=== PATIENT | female | born 1965 | race Caucasian/White ===

== ENCOUNTER → 2023-04-06 14:43 | Outpatient (REF) | payer OTHER, SELFPAY | LOC: HWRAD 14:43 | PROVIDERS: ATTENDING PHYSICIAN Obstetrics & Gynecology; FAMILY PHYSICIAN Family Medicine | DX: N95.0 Postmenopausal bleeding (principal) | CPT/HCPCS: 76830; 76856 ==

== ENCOUNTER 2023-04-27 17:12 | Emergency (ER) | payer OTHER, SELFPAY ==
[2023-04-27 17:16] VITALS: BP 200/110
[2023-04-27 17:59] LABS: % Basophils 0.7 % (0-2); % Eosinophils 0.7 % (0-6); % Immature Granulocytes 0.5 % (0-0.5); % Lymphocytes 18.4 % (20.5-51.1); % Monocytes 8.6 % (1.7-9.3); % Neutrophils 71.1 % (42.2-75.2); Absolute Basophils 0.1 10^3/uL (0-0.2); Absolute Eosinophils 0.1 10^3/uL (0-0.7); Absolute Immature Granulocytes 0.1 10^3/uL (0-0.05); Absolute Lymphocytes 1.8 10^3/uL (1.2-3.4); Absolute Monocytes 0.9 10^3/uL (0.1-0.6); Hematocrit 47.8 % (37.0-47.0); Hemoglobin 16.4 g/dL (12.0-16.0); Mean Corp Hgb Conc. 34.3 g/dL (33.0-37.0); Mean Corpuscular Hgb 30.5 pg (27.0-31.0); Mean Platelet Volume 10.6 fL (7.4-10.4); Nucleated Red Blood Cells % 0 %; Platelet Count 307 10^3/uL (130-400); Red Blood Cell Count 5.37 10^6/uL (4.20-5.40); Red Cell Dist. Width 12.1 % (11.5-14.5); White Blood Cell Count 9.9 10^3/uL (4.8-10.8)
[2023-04-27 18:05] LABS: HCG, Serum Qualitative Screen Negative
[2023-04-27 18:07] LABS: ALT (SGPT) 87 U/L (0-35); AST (SGOT) 68 U/L (14-36); Albumin 4.7 g/dl (3.5-5.0); Alkaline Phosphatase 84 U/L (38-126); Blood Urea Nitrogen 15 mg/dl (7-17); Carbon Dioxide 25 mmol/L (22-30); Chloride 102 mmol/L (98-107); Glucose 109 mg/dl (70-99); Potassium 4.1 mmol/L (3.5-5.1); Sodium 134 mmol/L (135-145); Total Bilirubin 0.8 mg/dl (0.2-1.3); Total Protein 7.3 g/dl (6.3-8.2); eGFR > 60.00
[2023-04-27 18:12] VITALS: BP 150/77
--- NOTE | 2023-04-27 18:14 | ED.GENMED ---
History of Present Illness
General
Chief Complaint: Headache
Source: patient
Exam Limitations: none
Time Seen by Provider: 04/27/23 17:56
Travel History
Have you had any contact with someone who has COVID-19?: No
Do you have any symptoms of coronavirus? Fever > 100 degrees, chills, cough, shortness of breath, sore throat, loss of taste or smell, muscle aches, or headache?: No
History of Present Illness
History of Present Illness:
This is a 57 year old female that comes in with c/o Migraine. States that she has had migraines in the past but today this feels worse. States that it started last night and she was up all night due to the pain. States that she took Imitrex and it
did not help. States that there is pounding and pressure. States that it is across the forehead and the base of the skull and this is the normal location for her Migraines. States that it has been constant and that the lights and sounds bothers her.
States that she was also seeing a line when she was on her computer. States that she is nauseated. Denies any fever, chills, chest pain, SOB, abd pain, vomiting, diarrhea, dizziness, urinary burning.
Past History
Past History
ED Past Medical History: Asthma, HTN, Psychiatric (Depression) and Other (Migraines, Anemia, Abnormal post medapausal bleeding)
ED Past Surgical History: and Other (Gastric bypass)
Social History
Tobacco: Non-smoker
Alcohol: Occasional
Personal:
Living: with family
Family History
Family History: Early CAD
Review of Systems
Review of Systems
All Other Systems: ROS reviewed and negative except as documented in HPI and ROS
Constitutional: Reports no symptoms; Denies fever or chills
EENT: Reports no symptoms
Respiratory: Reports no symptoms; Denies cough or trouble breathing
Cardiac: Reports no symptoms; Denies chest pain
ABD/GI: Reports nausea; Denies abdominal pain, vomiting or diarrhea
: Reports no symptoms; Denies dysuria, frequency or urgency
Musculoskeletal: Reports no symptoms
Skin: Reports no symptoms
Neurological: Reports headache; Denies dizzy
Psychiatric: Reports no symptoms
Phy Exam
General Physical Exam
General Presentation: mild distress
General age: appears stated age
General Skin: warm and dry
General Habitus: normal
General Mental: alert
General Hydration: dry mucous membranes
ENT Exam
ENT Exam: TM's normal, pharynx normal and neck supple
Eye Exam
Eye Exam: EOMI
Cardiovascular Exam
Cardiovascular Exam: regular rate/rhythm, no edema, no murmur and normal peripheral pulses
Pulmonary Exam
Pulmonary Exam: lungs clear, no respiratory distress, no rales, chest non tender, no crackles, no rhonchi, no wheezing and no cough
Gastrointestinal Exam
Gastrointestinal Exam: normal bowel sounds, non tender, soft, no organomegaly, no pulsatile mass and non distended
Musculoskeletal Exam
Musculoskeletal Exam: full ROM and no edema
Skin Exam
Skin Exam: normal color, warm/dry, no rash and no petechia
Psychiatric Exam
Psychiatric Exam: normal mood/affect
Course
Orders/Labs/Results
Orders:
Orders
04/27/23 17:21
Electrocardiogram (*1) Urgent
Reason for Study: Hypertension, Benign
04/27/23 17:22
EKG- Treatment ONCE
Test Result ONCE
04/27/23 17:34
Complete Blood Count/With Diff Urgent
Comprehensive Metabolic Panel Urgent
HCG, Serum Qualitative Screen Urgent
04/27/23 18:05
0.9% Sodium Chloride 1000 ml [Nss] 1,000 ml IV BOLUS
Acetaminophen 1000MG/100Ml [Ofirmev] 1,000 mg in 100 ml IV ONCE
Acetaminophen IV Indication:: ED Narcotic Naive Pt-ONCE
Dexamethasone Sod Phosphate [Decadron] 20 mg IV NOW STA
Diphenhydramine [Benadryl] 25 mg IV NOW STA
Ketorolac [Toradol] 30 mg IV NOW STA
Prochlorperazine [Compazine] 5 mg IV NOW STA
04/27/23 18:15
COVID-19 Antigen Urgent
Source: Nasal Swab
Abnormal Lab Results
04/27/23
17:34
Hgb 16.4 H g/dL
(12.0-16.0)
Hct 47.8 H %
(37.0-47.0)
MPV 10.6 H fL
(7.4-10.4)
Abs Immat Gran (auto) 0.1 H 10^3/uL
(0-0.05)
Absolute Neuts (auto) 7.0 H 10^3/uL
(1.4-6.5)
Absolute Monos (auto) 0.9 H 10^3/uL
(0.1-0.6)
Lymphocytes % 18.4 L %
(20.5-51.1)
Sodium 134 L mmol/L
(135-145)
Glucose 109 H mg/dl
(70-99)
AST 68 H U/L
(14-36)
ALT 87 H U/L
(0-35)
04/27/23 17:34
04/27/23 17:34
H/H elevated. glucose nonfasting. AST/ALT elevation. HCG negative.
Vital Signs
Initial and Last Documented VS:
Initial Vital Signs
Temp Pulse Resp BP Pulse Ox
97.6 F 84 18 200/110 98
04/27/23 17:16 04/27/23 17:16 04/27/23 17:16 04/27/23 17:16 04/27/23 17:16
Last Documented Vital Signs
Temp Pulse Resp BP Pulse Ox
97.6 F 80 24 200/110 98
04/27/23 17:16 04/27/23 18:06 04/27/23 18:06 04/27/23 17:16 04/27/23 17:16
MDM/Problems Addressed
Differential Diagnosis Includes:
Migraines, COVID
MDM/Problems Addressed:
This is a 57 year old female that comes in with c/o migraine. States that this started last night and has continued since that time. States that she took Imitrex and Tylenol with no relief.
Will get labs and Medicate for pain.
Back into see patient. Patient states that she is feeling much better and ready to go home. Explained to patient to increase her water intake. She may also alternate with Tylenol 1000mg every 6 hours and Ibuprofen 600mg every6 hours with food.
Patient to follow up with the family doctor for recheck. Explained that her blood work does show her Liver enzymes are elevated. This will need to be rechecked by the PCP. BP at this time is 118/69. Patient to return with any concerns.
Chronic conditions affecting care:
Migraines
Acute Exacerbation and/or Progression of Chronic Illness:
Migraines
*Pulse Oximetry
Patient hypoxic: no
*EKG
Interpreted by ED Provider?: NA
Rate: EKG- N/A
*Records Management Engineer Interpretation
Rate: Records Management Engineer- N/A
*Critical Care Note
Total Time (30-74mins, 75-104mins- exclusive of procedures): Not Applicable
ED Attending Note
-
Portions of this chart may have been created with voice recognition software.� Occasional wrong word or��sound alike� substitutions may have occurred due to the inherent limitations of voice recognition software.
Discharge Plan
Departure
Patient Disposition: Home (Routine Discharge)
Date of Disposition: 04/27/23
Time of Disposition: 19:44
Patient with high blood pressure during this ER visit?: Yes
Condition: Good
Covid-19: Negative COVID-19
Discharge Problem:
Migraine
Instructions: Migraines (DC), BLOOD PRESSURE
Prescriptions:
No Action
valsartan 80 MG tablet
160 mg PO DAILY
cyanocobalamin (vitamin B-12) 1,000 MCG tablet
1,000 mcg PO DAILY
vursmofctig-ddtxzopunbz-wwc C 1 TAB tablet
1 tab PO DAILY
hydrochlorothiazide 25 MG tablet
25 mg PO DAILY
zolpidem 5 MG tablet
5 mg PO HSPRN PRN (Reason: INSOMNIA)
multivitamin with folic acid [Tab-A-Casie] 1 TABLET tablet
1 tab PO DAILY
pantoprazole 40 MG tablet,delayed release (DR/EC)
40 mg PO DAILY Qty: 30 0RF
ferrous sulfate [FeroSul] 325 MG tablet
325 mg PO BID Qty: 60 0RF
Referrals:
Veronica Latif MD [Family Provider] - Call in 1-3 days for appt
Activity Restrictions/Additional Instructions:
As discussed, your blood work shows that your Liver enzymes are slightly elevated. This will need to be followed by the family doctor. Please increase your water intake to 8-8oz glasses daily. You may use Tylenol 1000mg every 6 hours for pain and
alternate with Ibuprofen 600mg every 6 hours with food. IF YOU HAVE ANY OTHER CONCERNS PLEASE RETURN TO THE EMERGENCY ROOM .
Interventions
Interventions:
*Risk Screen - Suicide Last Done: 04/27/23 17:16
*General Assessment Last Done: 04/27/23 17:16
*Neglect/Abuse Screening Last Done: 04/27/23 17:16
ED- Fall Risk Assessment Last Done: 04/27/23 18:14
[2023-04-27] MEDS: TORADOL 30 MG IV (18:22)
[2023-04-27] MEDS: DECADRON 20 MG IV (18:22)
[2023-04-27] MEDS: NSS 1000 IV (18:22)
[2023-04-27] MEDS: COMPAZINE 5 MG IV (18:23)
[2023-04-27] MEDS: BENADRYL 25 MG IV (18:23)
[2023-04-27] MEDS: OFIRMEV 100 IV (18:24)
[2023-04-27 19:00] VITALS: BP 118/69
[2023-04-27 19:35] LABS: COVID-19 Antigen Negative (Negative)
== END 2023-04-27 19:53 | disposition home or self-care (01) ==
LOC: EMR 17:12
PROVIDERS: Clinical Nurse Specialist Family Health; Emergency Medicine; EMERGENCY PHYSICIAN Emergency Medicine; FAMILY PHYSICIAN Family Medicine
DX: G43.909 Migraine, unspecified, not intractable, without status migrainosus (principal); J45.909 Unspecified asthma, uncomplicated; I10 Essential (primary) hypertension; F32.A Depression, unspecified; D64.9 Anemia, unspecified; Z82.49 Family history of ischemic heart disease and other diseases of the circulatory system; Z98.84 Bariatric surgery status
CPT/HCPCS: 80053; 84703; 85025; 87811; 93005; 96361; 96374; 96375; 99283

== ENCOUNTER 2023-05-11 06:32 | Day surgery (SDC) | payer OTHER, SELFPAY ==
[2023-05-11 08:59] LABS: Glucose - Point of Care 111 mg/dl (70-99)
--- NOTE | 2023-05-11 15:19 | W.IMMPOSTOP ---
Addendum entered and electronically signed by Carrie Wilde DO 05/13/23 20:07:
procedure: hysteroscopy D&C polypectomy and resection of submucosal fibroid
Original Note:
Surgical Immed Post Op Note
-
Primary Surgeon: Carrie Wilde DO
Assisting Surgeon: nShauna
Pre-op Diagnosis: Postmenopausal bleeding, thickened endometrium
Post-op Diagnosis: same, endometrial polyp and submucosal fibroid
Procedure Performed: hysteroscopy D&C polypectomy and biopsy fibroid
Anesthesia Type: general with LMA Dr. Hawkins
Specimen / Cultures: 1. endocervical curettings 2. endometrial curettings, polyp(resected) and bx fibroid
Estimated Blood Loss: 5ml
Fluid Deficit: 90 ml NSS
Complications: none
Operative Findings: Uterus is anteverted. Uterus sounded to 10 cm, bilateral tubal ostia seen. Endometrial polyp noted attached at right side uterine body. Small submucosal fibroid noted-biopsied with myosure resection device.
Counts correct times 2.
Stable to recovery.
== END 2023-05-11 16:55 | disposition home or self-care (01) ==
LOC: SDS 06:32
PROVIDERS: ATTENDING PHYSICIAN Obstetrics & Gynecology
DX: N95.0 Postmenopausal bleeding (principal); R93.89 Abnormal findings on diagnostic imaging of other specified body structures; D25.0 Submucous leiomyoma of uterus; N84.0 Polyp of corpus uteri
CPT/HCPCS: 58558; 88305; 82962; 86850; 86900; 86901

== ENCOUNTER → 2023-12-21 12:26 | Outpatient (REF) | payer OTHER, SELFPAY | LOC: HWWDC 12:26 | PROVIDERS: ATTENDING PHYSICIAN Family Medicine | DX: Z12.31 Encounter for screening mammogram for malignant neoplasm of breast (principal) | CPT/HCPCS: 77063; 77067 ==

== ENCOUNTER → 2024-05-24 10:53 | Outpatient (REF) | payer OTHER, SELFPAY | LOC: WDC 10:53 | PROVIDERS: ATTENDING PHYSICIAN Obstetrics & Gynecology; FAMILY PHYSICIAN Family Medicine | DX: R92.2 Inconclusive mammogram (principal) | CPT/HCPCS: 76641 ==

== ENCOUNTER 2024-10-27 06:12 | Day surgery (SDC) | payer OTHER, SELFPAY | END 2024-10-27 14:18 | disposition home or self-care (01) | LOC: GI 06:12 | PROVIDERS: ATTENDING PHYSICIAN Internal Medicine; FAMILY PHYSICIAN Family Medicine | DX: K55.20 Angiodysplasia of colon without hemorrhage (principal); K57.30 Diverticulosis of large intestine without perforation or abscess without bleeding; K64.8 Other hemorrhoids; Z83.719 Family history of colon polyps, unspecified; Z12.11 Encounter for screening for malignant neoplasm of colon; D12.3 Benign neoplasm of transverse colon; D12.5 Benign neoplasm of sigmoid colon; D12.1 Benign neoplasm of appendix | CPT/HCPCS: 45385; 45380; 88305 ==

== ENCOUNTER → 2024-10-31 14:50 | Outpatient (REF) | payer OTHER, SELFPAY | LOC: WDC 14:50 | PROVIDERS: ATTENDING PHYSICIAN Obstetrics & Gynecology; FAMILY PHYSICIAN Family Medicine | DX: R92.8 Other abnormal and inconclusive findings on diagnostic imaging of breast (principal) | CPT/HCPCS: 76642 ==

== ENCOUNTER → 2024-12-21 15:45 | Outpatient (REF) | payer OTHER, SELFPAY | LOC: WDC 15:45 | PROVIDERS: ATTENDING PHYSICIAN Obstetrics & Gynecology; FAMILY PHYSICIAN Family Medicine | DX: Z12.31 Encounter for screening mammogram for malignant neoplasm of breast (principal) | CPT/HCPCS: 77063; 77067 ==